=== PATIENT | female | born 1970 | race Caucasian/White ===

== ENCOUNTER → 2016-07-23 | Outpatient (CLI) | payer MEDICAID ==
--- NOTE | 2016-07-23 09:19 | MA ---
Screening Digital Mammogram Clinical Indications: Routine screening. Technique: Standard digital cephalocaudal and mediolateral oblique projections are obtained. The d igital images were processed by the [employer] computer aided detection system. Comparison: June 2015 Breast density: B; There are scattered fibroglandular densities. There is diffuse prominent ductal pa ttern. Findings: CAD was reviewed. Focal architectural distortion upper left breast. The remainder of the le ft and right breast are stable and unremarkable.. Impression: Possible focal architectural distortion left breast.. Recommendation: Spot compression views and true lateral view. If persistent, proceed to ultrasound f or further characterization and localization purposes. BI-RADS 0. Additional imaging left breast. [facility] will send a result letter to the patient. Negative mammography should not preclude additional workup of a clinically suspicious finding. The patient's information is entered into a reminder system with a target due date for her next mammo gram.
== END ==
LOC: FIMAGING 08:19
DX: Z12.31 Encounter for screening mammogram for malignant neoplasm of breast (principal)
CPT/HCPCS: G0202

== ENCOUNTER → 2016-08-19 | Outpatient (CLI) | payer MEDICAID | LOC: FIMAGING 11:08 | PROVIDERS: ATTEND Family Medicine | DX: R92.8 Other abnormal and inconclusive findings on diagnostic imaging of breast (principal) | CPT/HCPCS: G0206 ==

== ENCOUNTER 2016-09-05 10:58 | Emergency (ER) | payer MEDICAID ==
[2016-09-05 11:10] VITALS: TEMP 98.2
--- NOTE | 2016-09-05 11:39 | EDPHY ---
H & P Smoking Status: Never smoked Time Seen by Provider: 09/05/16 11:16 HPI/ROS: CHIEF COMPLAINT: Cough, vomiting, diffuse myalgias HISTORY OF PRESENT ILLNESS: 46-year-old female presents to the emergency department by private vehicle with her complaining of multiple episodes of vomiting since last night. The patient states over last 7 or 8 days she has felt this lingering cough and feeling diffusely achy and chilled. She is not take her temperature. They recently traveled to [place], [place] and returned about 1 month ago. Her is not ill. She has no diarrhea. No rash. She does not think that she was bit by anything while she was there. She did do a malaria prophylaxis, typhoid, and hepatitis A and B series. She denies chest pain or shortness of breath. She presents to the emergency department today because she is unable to stop vomiting and hold anything down. Her does state that she has had flu-like symptoms since the returned from the trip. This is the 3rd episode of flu-like symptoms although with her previous episode she did not have vomiting. She does have a headache. She does complain of neck pain although she does not feel that it is stiff. Last menstrual period just ended yesterday. REVIEW OF SYSTEMS: Constitutional: subjective fevers, chills Eyes: No double or blurry vision. ENT: No sore throat. Respiratory: cough no shortness of breath. Cardiac: No chest pain. Gastrointestinal: No abdominal pain, vomiting or diarrhea. Genitourinary: No dysuria. Musculoskeletal: neck pain. No back pain. Skin: No rashes. Neurological: headache. 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 Temperature 36.8, blood pressure 110/ 81, heart rate 73, 96% on room air. Eyes: Pupils equal and round. Extraocular motions are all intact. ENT: Mouth: Mucous membranes moist. Respiratory: No wheezing, rhonchi, or rales, lungs are clear to auscultation. Cardiovascular: Regular rate and rhythm. Gastrointestinal: Abdomen is soft and nontender, no masses, no rebound or guarding, bowel sounds normal. Neurological: Alert and oriented x 3, cranial nerves II through XII grossly intact Skin: Warm and dry, no rashes. Musculoskeletal: Nontender to palpate along the cervical, thoracic or lumbar spine. Neck is supple. No nuchal rigidity. Extremities: Full range of motion and no peripheral edema. Psychiatric: Patient is oriented X 3, there is no agitation. (Tori Michaud) Constitutional: Initial Vital Signs Temperature (C) 36.8 C 09/05/16 11:07 Heart Rate 73 09/05/16 11:07 Respiratory Rate 18 09/05/16 11:07 Blood Pressure 110/81 H 09/05/16 11:07 O2 Sat (%) 96 09/05/16 11:07 O2 Delivery Mode Room Air Allergies/Adverse Reactions: No Known Allergies Allergy (Verified 09/05/16 11:09) Home Medications: Medication Instructions Recorded Albuterol [Proventil Inhaler HFA 1 - 2 puffs IH Q4PRN PRN #1 mdi 09/05/16 (*)] Albuterol [Proventil Neb] 2.5 mg IH Q6 PRN #30 deyvial 09/05/16 Gabapentin 09/05/16 Hydrocodone/APAP 5/325 [[place] 1 each PO Q4-6PRN PRN #15 tab 09/05/16 5/325 (*)] Lamotrigine 09/05/16 Levothyroxine 09/05/16 Ondansetron Odt [Zofran Odt 4 mg 4 mg PO Q4 PRN #8 tab 09/05/16 (*)] Medical Decision Making - Diagnostics Imaging: Chest x-ray reveals no acute pulmonary disease. This is reviewed by myself the PAC system as well as by the radiologist. (Tori Michaud) ED Course/Re-evaluation: 46-year-old female presents to the emergency department with multiple episodes of vomiting. The patient has had recent travel. Influenza was negative. All of her laboratory testing is within normal limits. Chest x-ray reveals no obvious signs of pneumonia or infiltrate. Patient was given 30 mg of Toradol IV, 4 mg of Zofran IV, and IV normal saline. She was feeling much better. The patient was also seen examined by Dr. Sánchez. She was given infectious disease referral given her recent history of foreign travel. (Eden Michaudrina Elver) Differential Diagnosis: Including but not limited to influenza, gastritis, dehydration, gastroenteritis , acute appendicitis, pneumonia, meningitis (Eden Michaudrina Elver) Other Provider: I evaluated and participated in the management of the patient. I also evaluated the patient independently. My co-signature indicates that I have reviewed this chart and I agree with the findings and plan of care as documented. My personal H&P findings include: The patient presents to emergency department with a 2 week history of a worsening upper respiratory infection. She presents to the ED with complaints of an ongoing productive cough. Over the past 24 hours she has developed vomiting. The patient has not been taken Tylenol or ibuprofen. She does have a history of fairly significant travel outside the [place]. PHYSICAL EXAM: General Appearance: Alert, no distress Eyes: Pupils equal and round no pallor or injection ENT, Mouth: Mucous membranes moist Respiratory: There are no retractions, lungs are clear to auscultation Cardiovascular: Regular rate and rhythm Gastrointestinal: Abdomen is soft and nontender, no masses, bowel sounds normal Neurological: A&O, normal motor function, normal sensory exam, normal cranial nerves Skin: Warm and dry, no rashes Musculoskeletal: Neck is supple nontender Extremities: symmetrical, full range of motion The patient's chest x-ray demonstrates no evidence of acute disease or pneumonia. Her laboratory studies are unremarkable. She presents to the ED with a protracted upper respiratory infection which I feel is likely viral in nature. The patient will be given a prescription for an albuterol inhaler. She is also given a prescription for Zofran. I would like the patient to follow up with our Infectious Disease Clinic for any unimproved symptoms. She should return to the ED for markedly worsening symptoms or other concerns. The patient has no significant vital sign abnormalities or hypoxemia in the ED. ( Percy Sánchez) - Data Points Laboratory Results: Laboratory Results 09/05/16 11:30 09/05/16 11:30 09/05/16 09/05/16 09/05/16 13:15 11:30 11:30 WBC RBC Hgb Hct MCV MCH MCHC RDW Plt Count MPV Neut % (Auto) Lymph % (Auto) [place] % (Auto) Eos % (Auto) Baso % (Auto) Nucleat RBC Rel Count Absolute Neuts (auto) Absolute Lymphs (auto) Absolute Monos (auto) Absolute Eos (auto) Absolute Basos (auto) Absolute Nucleated RBC Immature Gran % Immature Gran # Sodium 139 mEq/L mEq/L (134-144) Potassium 4.2 mEq/L mEq/L (3.5-5.2) Chloride 108 mEq/L mEq/L (97-110) Carbon Dioxide 20 mEq/l L mEq/l (22-31) Anion Gap 11 mEq/L mEq/L (8-16) BUN 13 mg/dL mg/dL (7-23) Creatinine 0.8 mg/dL mg/dL (0.6-1.0) Estimated GFR > 60 Glucose 94 mg/dL mg/dL (70-100) Calcium 10.0 mg/dL mg/dL (8.5-10.4) Urine Color PALE YELLOW Urine Appearance CLEAR Urine pH 8.0 H (5.0-7.5) Ur Specific [place] 1.005 (1.002-1.030) Urine Protein NEGATIVE (NEGATIVE) Urine Ketones TRACE H (NEGATIVE) Urine Blood NEGATIVE (NEGATIVE) Urine Nitrate NEGATIVE (NEGATIVE) Urine Bilirubin NEGATIVE (NEGATIVE) Urine Urobilinogen NEGATIVE EU EU (0.2-1.0) Ur Leukocyte Esterase NEGATIVE (NEGATIVE) Urine RBC 5-10 /hpf H /hpf (0-3) Urine WBC 1-3 /hpf /hpf (0-3) Ur Epithelial Cells TRACE /lpf /lpf (NONE-1+) Urine Bacteria NONE SEEN /hpf /hpf (NONE SEEN) Urine Mucus TRACE /lpf /lpf (NONE-1+) Urine Glucose NEGATIVE (NEGATIVE) Influenza Typ A,B (DFA) NEGATIVE FOR FLU (NEGATIVE) 09/05/16 11:30 WBC 5.48 10^3/uL 10^3/uL (3.80-9.50) RBC 4.64 10^6/uL 10^6/uL (4.18-5.33) Hgb 14.4 g/dL g/dL (12.6-16.3) Hct 41.1 % % (38.0-47.0) MCV 88.6 fL fL (81.5-99.8) MCH 31.0 pg pg (27.9-34.1) MCHC 35.0 g/dL g/dL (32.4-36.7) RDW 11.8 % % (11.5-15.2) Plt Count 398 10^3/uL 10^3/uL (150-400) MPV 9.5 fL fL (8.7-11.7) Neut % (Auto) 51.3 % % (39.3-74.2) Lymph % (Auto) 31.8 % % (15.0-45.0) [place] % (Auto) 13.9 % H % (4.5-13.0) Eos % (Auto) 1.8 % % (0.6-7.6) Baso % (Auto) 0.7 % % (0.3-1.7) Nucleat RBC Rel Count 0.0 % % (0.0-0.2) Absolute Neuts (auto) 2.81 10^3/uL 10^3/uL (1.70-6.50) Absolute Lymphs (auto) 1.74 10^3/uL 10^3/uL (1.00-3.00) Absolute Monos (auto) 0.76 10^3/uL 10^3/uL (0.30-0.80) Absolute Eos (auto) 0.10 10^3/uL 10^3/uL (0.03-0.40) Absolute Basos (auto) 0.04 10^3/uL 10^3/uL (0.02-0.10) Absolute Nucleated RBC 0.00 10^3/uL 10^3/uL (0-0.01) Immature Gran % 0.5 % % (0.0-1.1) Immature Gran # 0.03 10^3/uL 10^3/uL (0.00-0.10) Sodium Potassium Chloride Carbon Dioxide Anion Gap BUN Creatinine Estimated GFR Glucose Calcium Urine Color Urine Appearance Urine pH Ur Specific [place] Urine Protein Urine Ketones Urine Blood Urine Nitrate Urine Bilirubin Urine Urobilinogen Ur Leukocyte Esterase Urine RBC Urine WBC Ur Epithelial Cells Urine Bacteria Urine Mucus Urine Glucose Influenza Typ A,B (DFA) Medications Given: Discontinued Medications Sodium Chloride (Ns) 1,000 mls @ 0 mls/hr IV ONCE ONE PRN Reason: Wide Open Stop: 09/05/16 12:15 Last Admin: 09/05/16 11:35 Dose: 1,000 mls Ketorolac Tromethamine (Toradol) 30 mg IVP EDNOW ONE Stop: 09/05/16 12:15 Last Admin: 09/05/16 12:22 Dose: 30 mg Ondansetron HCl (Zofran) 4 mg IVP EDNOW ONE Stop: 09/05/16 12:15 Last Admin: 09/05/16 12:22 Dose: 4 mg Departure - Departure Disposition: Home, Routine, Self-Care Clinical Impression: Upper respiratory infection Qualifiers: URI type: unspecified URI Qualified Code(s): J06.9 - Acute upper respiratory infection, unspecified Vomiting Qualifiers: Vomiting type: unspecified Vomiting Intractability: non-intractable Nausea presence: with nausea Qualified Code(s): R11.2 - Nausea with vomiting, unspecified Condition: Good Instructions: Upper Respiratory Infection (ED), Acute Nausea and Vomiting (ED) Additional Instructions: Clear liquids and then slowly advance diet as tolerated. Albuterol inhaler 2 puffs every 4 hours for 1 week and then as needed. Zofran as needed for nausea. Hydrocodone for severe pain as directed. Take Ibuprofen or Motrin 600 mg by mouth three times a day. Follow up with infectious disease doctor if your symptoms do not resolve. Return to the emergency department sooner if you develop recurring vomiting, fever, rash, shortness of breath, chest pain, or if you feel worse in any way. Referrals: Srinivas Roman MD [Primary Care Provider] - As per Instructions Shai Reyes MD [Medical Doctor] - 2-3 days, if not improved (Infectious disease doctor on-call) Prescriptions: Albuterol [Proventil Neb] 2.5 mg IH Q6 PRN #30 deyvial PRN Reason: for cough Albuterol [Proventil Inhaler HFA (*)] 1 - 2 puffs IH Q4PRN PRN #1 mdi PRN Reason: Short Of Breath/Dyspnea Hydrocodone/APAP 5/325 [[place] 5/325 (*)] 1 each PO Q4-6PRN PRN #15 tab PRN Reason: Pain, Severe Ondansetron Odt [Zofran Odt 4 mg (*)] 4 mg PO Q4 PRN #8 tab PRN Reason: P.r.n. vomiting
[2016-09-05 11:44] LABS: % IMMATURE GRANULYOCYTES 0.5 % (0.0-1.1); ABSOLUTE IMMATURE GRANULOCYTES 0.03 10^3/uL (0.00-0.10); ADD DIFF? NO; ADD MORPH? NO; ADD SCAN? NO; ATYPICAL LYMPHOCYTE FLAG 40 (0-99); FRAGMENT RBC FLAG 0 (0-99); HEMATOCRIT 41.1 % (38.0-47.0); HEMOGLOBIN 14.4 g/dL (12.6-16.3); LEFT SHIFT FLG 0 (0-99); LIPEMIA HEMOLYSIS FLAG 90 (0-99); MEAN CELL VOLUME 88.6 fL (81.5-99.8); MEAN PLATELET VOLUME 9.5 fL (8.7-11.7); PLATELET CLUMPS FLAG 0 (0-99); PLATELET COUNT 398 10^3/uL (150-400); RED BLOOD CELL COUNT 4.64 10^6/uL (4.18-5.33); RED CELL DISTRIBUTION WIDTH 11.8 % (11.5-15.2)
[2016-09-05 12:00] LABS: ANION GAP 11 mEq/L (8-16); CARBON DIOXIDE 20 mEq/l (22-31); CHLORIDE 108 mEq/L (97-110); CREATININE 0.8 mg/dL (0.6-1.0); GLOMERULAR FILTRATION RATE > 60; GLUCOSE 94 mg/dL (70-100); POTASSIUM 4.2 mEq/L (3.5-5.2); SODIUM 139 mEq/L (134-144)
[2016-09-05] MEDS ORDERED: ONDANSETRON 4 MG/2 ML VIAL IVP ONE (12:14)
[2016-09-05] MEDS ORDERED: NS 1,000 ML IV ONE (12:14)
[2016-09-05] MEDS ORDERED: KETOROLAC 30 MG/1 ML SDV IVP ONE (12:14)
[2016-09-05 13:30] LABS: COLOR PALE YELLOW; LEUKOCYTE ESTERASE,URINE NEGATIVE (NEGATIVE); NITRITE,URINE NEGATIVE (NEGATIVE)
[2016-09-05 13:32] LABS: BACTERIA NONE SEEN /hpf (NONE SEEN); MUCUS TRACE /lpf (NONE-1+)
[2016-09-05 15:06] VITALS: BP 99/46; PULSE 64; RESP 14; O2SAT 95
== END 2016-09-05 15:06 | disposition home or self-care (01) ==
DX: J06.9 Acute upper respiratory infection, unspecified (principal); R11.2 Nausea with vomiting, unspecified
CPT/HCPCS: 96374; J1885; J2405

== ENCOUNTER → 2016-09-30 | Outpatient (CLI) | payer MEDICAID | LOC: CIMAGING 08:13 | PROVIDERS: ATTEND Internal Medicine Infectious Disease | DX: Z71.89 Other specified counseling (principal) | CPT/HCPCS: 76705-PO ==

== ENCOUNTER → 2018-06-24 | Outpatient (CLI) | payer MEDICAID | LOC: FIMAGING 08:35 | PROVIDERS: ATTEND Family Medicine | DX: Z12.31 Encounter for screening mammogram for malignant neoplasm of breast (principal) ==